=== PATIENT | male | born 1985 | race Caucasian/White ===

== ENCOUNTER 2024-10-16 18:46 | Emergency (ER) | payer OTHER ==
[~2024-10-16] VITALS: Ht 190.5 cm; Wt 140.6 kg
== END 2024-10-16 21:20 | disposition home or self-care (01) ==
LOC: ER 18:46
DX: S61.213A Laceration without foreign body of left middle finger without damage to nail, initial encounter (principal); W31.2XXA Contact with powered woodworking and forming machines, initial encounter
CPT/HCPCS: 73140; 99282-25